=== PATIENT | male | born 1990 | race African-American/Black ===

== ENCOUNTER 2020-11-13 07:23 | Emergency (ER) | payer SELFPAY ==
[~2020-11-13] VITALS: Ht 170.2 cm; Wt 76.0 kg
[2020-11-13 07:25] VITALS: BP 131/77
--- NOTE | 2020-11-13 07:35 | PHYS DOC ---
Adult General HPI HPI Patient is a 30-year-old male who presents via EMS for what feet. States he is homeless and has been living at local halfway. Reports he has worn the same socks for past 48 hours despite being in the wet rain and as such, presents for wet feet. He has no significant pain, no changes in motor or sensory or neuro f unction Review of Systems Review of Systems Fourteen body systems of review of systems have been reviewed. See HPI for pertinent positives and negative responses, other enrique all other systems are negative, non-pertinent or non-contributory Physical Exam Physical Exam Constitutional: Well developed, well nourished, no acute distress, non-toxic appearance. Poor overall hygiene HENT: Normocephalic, atraumatic, bilateral external ears normal, oropharynx moist, no oral exudates, nose normal. Eyes: PERRLA, EOMI, conjunctiva normal, no discharge. Neck: Normal range of motion, no tenderness, supple, no stridor. Cardiovascular: Heart rate regular, sinus rhythm, no murmurs rubs or gallops Lungs & Thorax: Bilateral breath sounds clear to auscultation Abdomen: Bowel sounds normal, soft, no tenderness, no masses, no pulsatile masses. Nonsurgical abdomen, no peritoneal signs Skin: Warm, dry, no erythema, no rash. Back: No tenderness, no CVA tenderness. Extremities: No tenderness, no cyanosis, no clubbing, ROM intact, no edema. Mild skin breakdown on distal pads of third and fourth left toes with otherwise 2+ TP and DP pulses to bilateral lower extremities. Patient's feet are consistent in appearance given recent reported history of wearing wet socks for past 48 hours without any other signs of infection, skin breakdown or other concerning pathology Neurologic: Alert and oriented X 3, normal motor & sensory function, no focal deficits noted. Neurovascularly intact bilateral lower extremities Psychologic: Affect normal, judgement normal, mood normal. EKG EKG [] Radiology/Procedures Radiology/Procedures [] Heart Score C/O Chest Pain: No Risk Factors: Risk Factors: DM, Current or recent (<one month) smoker, HTN, HLP, family history of CAD, obesity. Risk Scores: Risk Factors: DM, Current or recent (<one month) smoker, HTN, HLP, family history of CAD, obesity. Course & Med Decision Making Course & Med Decision Making ABCs unremarkable. I disclosed entirety of ER findings and discussed most likely diagnosis of wet feet due to wearing wet socks. I discussed need for supportive care and wearing dry socks and utilizing baby powder as needed. Joint decision to defer any further diagnostic work-up in ER setting given lack of red flag signs or symptoms. Ultimately, I stressed need for close outpatient follow-up to review today's ER visit. Strict return precautions were also discussed at length with good understanding by patient. Patient voiced understanding and agreement with the plan. Patient knows to come back for repeat evaluation if concerning signs or symptoms present prior to outpatient follow- up. Hemodynamically stable, ambulatory and well-appearing at time of disposition. Dragon Disclaimer Dragon Disclaimer This electronic medical record was generated, in whole or in part, using a voice recognition dictation system. Departure Departure: Impression: Primary Impression: Cold foot Disposition: HOME / SELF CARE / HOMELESS Condition: STABLE Referrals: PCP,UNKNOWN (PCP) Additional Instructions: As discussed prior to your departure your vital signs and physical examination were unremarkable. Your feet are wet and cold likely due to the fact that you have been wearing cold socks and you have not been changing them. As discussed, it is important to keep your feet dry. I would utilize baby powder and wear dry socks exclusively. If any concerning signs or symptoms present prior to outpatient follow-up please do not hesitate to come back for repeat evaluation. It was a pleasure to take care of you and I wish you the best going forward LANCE VILLELA DO Nov 13, 2020 07:35
== END 2020-11-13 08:08 | disposition home or self-care (01) ==
LOC: ER 07:23
DX: R20.8 Other disturbances of skin sensation (principal); Z59.0 Homelessness
CPT/HCPCS: 99283